=== PATIENT | female | born 1940 | race Caucasian/White ===

== ENCOUNTER 2020-08-03 08:28 | Outpatient (CLI) | payer MEDICARE, BC ==
[~2020-08-03] VITALS: Ht 165.1 cm; Wt 67.4 kg
[2020-08-03 09:31] LABS: BASO # 0.1 (0.0-0.2); BASO % 1.1 % (0.0-2.0); EOS # 0.4 (0.0-0.7); EOS % 5.5 % (0-4.0); GRAN # 4.1 (1.4-6.5); GRAN % 62.8 % (42.2-75.2); HEMOGLOBIN 13.4 g/dl (12.5-16.0); LYMPH # 1.4 (1.2-3.4); LYMPH % 21.4 % (20.0-51.0); MEAN CELL VOLUME 99 fl (80.0-100.0); MEAN CORPUSCULAR HEMOGLOBIN 34 pg (27.0-31.0); MEAN CORPUSCULAR HGB CONC 34 g/dl (33.0-37.0); MEAN PLATELET VOLUME 9.8 fl (7.4-10.4); MONO # 0.6 (0.1-0.6); PLATELET COUNT 228 K/mm3 (130-400); RED BLOOD COUNT 3.93 M/mm3 (4.10-5.30); REDCELL DISTRIBUTION WIDTH-CV 12.7 % (11.5-14.5)
[2020-08-03 09:36] LABS: INR 2.3 (0.8-3.0); PROTHROMBIN TIME 26.2 SECONDS (9.7-12.8)
[2020-08-03 09:37] LABS: CALCIUM 9.5 mg/dL (8.4-10.2); CREATININE, serum 0.97 (0.52-1.25); POTASSIUM 4.2 mmol/L (3.4-5.0)
[2020-08-03 09:39] VITALS: BP 169/80; PULSE 65; TEMP 98
[2020-08-03] MEDS ORDERED: NEURONTIN100 MG/CAP PO (10:11)
[2020-08-03] MEDS ORDERED: PACERONE200 MG PO (10:11)
[2020-08-03] MEDS ORDERED: ASPIRIN E.C. 8181 MG PO (10:11)
[2020-08-03] MEDS ORDERED: HCTZ 25MG TAB25 MG PO (10:12)
[2020-08-03] MEDS ORDERED: KEPPRA 500MG500 MG PO (10:12)
[2020-08-03] MEDS ORDERED: K-DUR20 MEQ PO (10:13)
[2020-08-03] MEDS ORDERED: PROTONIX 40MG T40 MG PO (10:13)
[2020-08-03] MEDS ORDERED: ALTACE 10MG TAB10 MG PO (10:13)
[2020-08-03] MEDS ORDERED: SANCTURA20 MG PO (10:14)
[2020-08-03] MEDS ORDERED: XARELTO20 MG PO (10:14)
[2020-08-03] MEDS ORDERED: PLAVIX 75MG TAB75 MG PO (10:27)
[2020-08-03 10:45] VITALS: BP 152/77; PULSE 60
[2020-08-03 11:00] VITALS: BP 147/71; PULSE 62
[2020-08-03 11:15] VITALS: BP 151/72; PULSE 63
[2020-08-03 11:30] VITALS: BP 155/95; PULSE 65
--- NOTE | 2020-08-03 11:35 | NUR ---
Pt tolerating PO fluids without difficulty. Steady on feet in room. DC instructions reviewed with pt, she expresses understanding. IV DC'd with catheter intact. She is assisted out by wheelchair with belongings to grandson's car.
== END 2020-08-03 11:40 | disposition home or self-care (01) ==
LOC: COL.RAD 08:28
PROVIDERS: Internal Medicine Cardiovascular Disease
DX: I34.0 Nonrheumatic mitral (valve) insufficiency (principal); I48.0 Paroxysmal atrial fibrillation
CPT/HCPCS: J2704

== ENCOUNTER 2021-06-23 08:47 | Outpatient (CLI) | payer MEDICARE, BC ==
[~2021-06-23] VITALS: Ht 165.2 cm; Wt 63.0 kg
[~2021-06-23 08:47] MED LIST: ALTACE 10MG TAB10 MG PO; ASPIRIN E.C. 8181 MG PO; HCTZ 25MG TAB25 MG PO; K-DUR20 MEQ PO; KEPPRA 500MG500 MG PO; NEURONTIN100 MG/CAP PO; PACERONE200 MG PO; PLAVIX 75MG TAB75 MG PO; PROTONIX 40MG T40 MG PO; SANCTURA20 MG PO; XARELTO20 MG PO
[2021-06-23 09:10] VITALS: BP 141/58; PULSE 56; TEMP 98
[2021-06-23 09:38] LABS: HEMATOCRIT 39.4 % (37.0-47.0); HEMOGLOBIN 13.4 g/dl (12.5-16.0); MEAN CELL VOLUME 100 fl (80.0-100.0); MEAN CORPUSCULAR HEMOGLOBIN 34 pg (27-31); MEAN CORPUSCULAR HGB CONC 34 g/dl (33.0-37.0); PLATELET COUNT 208 K/mm3 (130-400); RED BLOOD COUNT 3.96 M/mm3 (4.10-5.30); REDCELL DISTRIBUTION WIDTH-CV 12.1 % (11.5-14.5)
[2021-06-23 09:44] LABS: PROTHROMBIN TIME 11.5 SECONDS (9.7-12.8)
[2021-06-23] MEDS ORDERED: DITROPAN 5MG TAB5 MG PO (09:47)
[2021-06-23 09:53] LABS: CALCIUM 9.2 mg/dL (8.4-10.2); CREATININE, serum 0.89 mg/dL (0.57-1.11); POTASSIUM 4.1 mmol/L (3.5-4.5)
[2021-06-23 10:45] VITALS: BP 137/68; PULSE 53
--- NOTE | 2021-06-23 10:45 | NUR ---
PT SITS UP IN BED, AWAKE AND ALERT. FRIEND IN ROOM, NO C/O, CALL LIGHT IN REACG
[2021-06-23 11:00] VITALS: BP 137/68; PULSE 55
[2021-06-23 11:15] VITALS: BP 145/75; PULSE 57
--- NOTE | 2021-06-23 11:15 | NUR ---
PT SITS ON SIDE OF BED, REVIEWED DISCHARGE INST. WITH PT ON ACTIVITY, PRECAUTIONS, REVIEWED MED LIST, WILL CALL FOR APPT, AND STOP PLAVIX ORDERED UP TO B/R TO VOID, GAIT STEADY, UP IN ROOM DRESSED
[2021-06-23 11:30] VITALS: BP 124/75; PULSE 58
--- NOTE | 2021-06-23 11:40 | NUR ---
PT DISCHARGED VIA W/C TO CAR WITH FRIEND
== END 2021-06-23 11:40 | disposition home or self-care (01) ==
LOC: COL.RAD 08:47
PROVIDERS: Internal Medicine Cardiovascular Disease
DX: Z45.2 Encounter for adjustment and management of vascular access device (principal); I48.11 Longstanding persistent atrial fibrillation; I34.0 Nonrheumatic mitral (valve) insufficiency; I49.8 Other specified cardiac arrhythmias; I48.19 Other persistent atrial fibrillation
CPT/HCPCS: J2704